=== PATIENT | male | born 1995 | race Caucasian/White ===

== ENCOUNTER 2016-06-21 12:21 | Observation (INO) | payer OTHER ==
[~2016-06-21] VITALS: Ht 185.4 cm; Wt 108.9 kg
--- NOTE | 2016-06-21 14:03 | DRSVH ---
PROCEDURE: CT ABDOMEN AND PELVIS WITH CONTRAST ([id number]) INDICATIONS: RIGHT SIDED ABDOMINAL PAIN TECHNIQUE: After the administration of oral and intravenous contrast, 5 mm thick sections acquired from the diap hragms to the symphysis. 5 mm thick coronal and sagittal reformats were performed. For radiation do se reduction, the following was used: automated exposure control, adjustment of mA and/or kV accordi ng to patient size. COMPARISON: None. FINDINGS: Image quality: Excellent. ABDOMEN: Lung bases: Lung bases are clear. Heart size is normal. Solid organs: Liver and spleen are normal in size and enhancement. Gallbladder is unremarkable. Bi liary system is non-dilated. Pancreas enhances normally. No adrenal nodules. Kidneys are normal in size and enhancement, without hydronephrosis. Peritoneum and bowel: Stomach, small bowel, and colon loops are normal in caliber and wall thickness . The appendix is hyperemic with focal periappendiceal fat stranding. The appendix measures 1.3 cm in diameter. No free fluid or air. No findings to suggest perforation or phlegmon. There are scattered sigmoid diverticula. No evidence for diverticulitis. Nodes and vessels: No retroperitoneal or mesenteric adenopathy. Aorta and inferior vena cava are no rmal in caliber. Miscellaneous: No ventral hernias. PELVIS: Genitourinary: Bladder wall thickness is normal. Miscellaneous: No inguinal hernias or adenopathy. Bones: No suspicious bony lesions. No vertebral body compression fractures. IMPRESSION: 1. Non-perforated acute appendicitis. This finding was discussed with Dr. Woodard at 2:00 PM on 06/21/16. 2. Diverticulosis. No acute diverticulitis. Dictated by: Ariella Haynes M.D. on 06/21/2016 at 14:02 Approved by: Ariella Haynes M.D. on 06/21/2016 at 14:02
[2016-06-21 16:43] VITALS: BP 120/68; PULSE 77; RESP 20; O2SAT 99
[2016-06-21] MEDS ORDERED: MetoCLOpramide 5 mg/mL 2 mL Inj IVPUSH PRN ×2 (17:15→20:50)
[2016-06-21] MEDS ORDERED: Ondansetron 2 mg/mL 2 mL Inj IVPUSH PRN ×2 (17:15→20:50)
[2016-06-21] MEDS: D5 0.45% NaCl + KCl 20 mEq/L 1,000 ML IV SCH (18:47)
[2016-06-21] MEDS: Cefotetan Inj 2,000 MG in IV Premix 1 EACH IV SCH (19:43)
--- NOTE | 2016-06-21 20:44 | HP ---
[address] [address] HISTORY AND PHYSICAL PATIENT: LEXY GREENE : 1995 MR#: [id number] ADMIT: 06/21/2016 JOB ID: [id number] CHIEF COMPLAINT: A 20-year-old gentleman with acute appendicitis seen in consultation at the request of Imani Woodard MD. HISTORY OF PRESENT ILLNESS: The patient is a 20-year-old gentleman who developed episodic abdominal pain starting three days ago. It progressively got worse, became more focal in the right lower side of the abdomen, with nausea and a couple episodes of emesis. He felt like he got sweats and chills last night, but he did not have any documented fevers. He was trying to see if he was going to get better, but he did not, prompting him to come into Urgent Care today. In Urgent Care he had blood tests and a CT scan done and was diagnosed with acute appendicitis and after Dr. Olivo discussed his case with me he was directly admitted to the hospital floor where I met him. OTHER MEDICAL PROBLEMS: Obesity. PRIOR OPERATIONS: None. HOME MEDICATIONS: None. ALLERGIES: No known drug allergies. REVIEW OF SYSTEMS: Twelve-point review of systems negative other than the pertinent positives noted in the history of present illness and other medical problems. SOCIAL HISTORY: He does not smoke. He is here with his mother. 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 FAMILY HISTORY: No family history of inflammatory bowel disease. Nobody in the family had appendicitis before that they know about. INVESTIGATIONS: Labs from June 21, 2016, showed WBC of 16.1, hemoglobin of 14.7, platelet count of 279, glucose of 100, creatinine of 0.75. Normal liver function studies. Albumin of 5.0. His urinalysis was negative other than some bilirubin. CT abdomen and pelvis performed on June 21, 2016, showed a 1.3 cm inflamed appendix with no evidence of perforation. PHYSICAL EXAMINATION: A 20-year-old gentleman in no acute distress. BMI 31.7. Temperature 36.8, pulse 77, blood pressure 120/68, saturating 99% on room air. Eyes: Normal pupils, conjunctivae. Ears, nose, and throat: Normal external appearance. Neck: No lymphadenopathy or jugular venous distention. Respiratory: Normal effort, clear to auscultation. Cardiovascular: Regular rate and rhythm. Gastrointestinal: Focally tender to palpation in the right lower quadrant. Neurologic: No gross deficits. Psych: Alert, appropriate. Musculoskeletal: Normal strength in extremities. ASSESSMENT AND PLAN: Acute appendicitis. We discussed the pathophysiology and treatment rationale and recommended IV antibiotics and laparoscopic appendectomy. They are comfortable waiting overnight. I will pass this information on to Dr. John Olivo, who is on-call this weekend, and we will plan to take care of him.
[2016-06-21 20:45] VITALS: BP 125/73; PULSE 83; RESP 20; O2SAT 98
[2016-06-21] MEDS ORDERED: Ondansetron 8 mg ODT Tablet PO PRN (20:50)
[2016-06-21] MEDS ORDERED: HYDROmorphone PCA 0.2 mg/mL 30 mL Inj - Standard IV PRN ×2 (20:50→21:00)
[2016-06-21] MEDS ORDERED: HYDROmorphone 1 mg/mL Inj IVPUSH PRN ×4 (20:50→21:00)
[2016-06-21 22:40] VITALS: RESP 15; O2SAT 95
[2016-06-22] VITALS (12 sets, daily range): BP systolic 104–132; BP diastolic 54–66; PULSE 60–111; RESP 14–20; O2SAT 96–100
[2016-06-22] MEDS: D5 0.45% NaCl + KCl 20 mEq/L 1,000 ML IV SCH (04:22)
[2016-06-22] MEDS: Cefotetan Inj 2,000 MG in IV Premix 1 EACH IV SCH (06:48)
[2016-06-22] MEDS ORDERED: Cefotetan Inj 2,000 MG in IV Premix 1 EACH IV ONE (08:00)
[2016-06-22] MEDS ORDERED: HYDROmorphone 1 mg/mL Inj IVPUSH PRN (09:10)
[2016-06-22] MEDS ORDERED: Lactated Ringer's 1,000 ML IV ONE ×2 (09:10→09:11)
[2016-06-22] MEDS ORDERED: Lactated Ringer's 1,000 ML IV SCH (09:10)
[2016-06-22] MEDS ORDERED: Lactated Ringer's 500 ML IV PRN (09:10)
[2016-06-22] MEDS ORDERED: Dexamethasone 4 mg/mL Inj IVPUSH PRN (09:10)
[2016-06-22] MEDS ORDERED: Ondansetron 2 mg/mL 2 mL Inj IVPUSH PRN ×2 (09:10→10:05)
[2016-06-22] MEDS ORDERED: fentaNYL-PF 50 mCg/mL 2 mL Inj IVPUSH PRN (09:10)
[2016-06-22] MEDS ORDERED: Phenylephrine 10,000 mCg/mL Inj IVPUSH PRN (09:10)
[2016-06-22] MEDS ORDERED: Labetalol 5 mg/mL 4 mL Inj IV PRN (09:10)
[2016-06-22] MEDS ORDERED: hydrALAZINE 20 mg/mL Inj IVPUSH PRN (09:10)
[2016-06-22] MEDS ORDERED: Atropine 0.4 mg/mL Inj IVPUSH PRN (09:10)
[2016-06-22] MEDS ORDERED: EPHEDrine Sulfate 50 mg/mL Inj IVPUSH PRN (09:10)
[2016-06-22] MEDS ORDERED: MetoCLOpramide 5 mg/mL 2 mL Inj IVPUSH PRN (09:10)
--- NOTE | 2016-06-22 09:10 | PCM.HPANE ---
Patient Data Date of Service: Jun 22, 2016 Surgeon Admitting Provider:John Olivo MD Attending Provider:John Olivo MD Primary Care Physician:Bri Alegre MD Other Provider:Roberta Cooley Anesthesia Reason for Visit Acute Appendicitis Ht/WT & BMI Height (Feet): 6 Height (Inches): 1.00 Weight (Kilograms): 108.900 Body Mass Index 31.88 Allergies Coded Allergies: No Known Allergies (Unverified Allergy, Unknown, 06/01/14) Diabetes History Hx Diabetes?: No Medications Hypertension Medication: No Home Meds Incl Beta Miguel Ángel: No No Active Prescriptions or Reported Meds History History of ENT Problems?: No Hx of Heart Problems?: No Cardiovascular History: Denies:: Congestive Heart Failure Hypertension Hx of Respiratory Problem?: No Respiratory History: Denies:: Tuberculosis Hx Neurologic Problems?: No Hx of GI Problems?: Yes Hx of Problems?: No Male Hx: Denies:: Prostate Problems Scrotal Mass Testicular Surgery Hx Musculoskeletal Problems?: No Hx of Psycho/Social Problems?: No Hx Surgeries?: No Hx Any Other Health Problems?: No History Blood Transfusions: Positive for:: Accept Blood Products? Denies:: Blood Transfuse Reaction Blood Transfusions Hx Diabetes: No Hx Alcohol Use: NoHx Substance Use: No Smoking Status: Former Smoker Stop/Bang Treated for Sleep Apnea?: No Do You Have a CPAP Machine?: No S-Snoring: Do You Snore Loudly: No T-Tired: feel tired, fatigued: Yes O-Obsered: Observed not breath: No P-Blood Pressure: treated: No B- Body Mass Index > 35 kg/m2: No A- Age over 50: No N- Neck Large Circumference: No G- Gender Male: Yes DAFNE Total Score: 2 DAFNE Risk Assessment: Low Risk, <3 Yes Risk Assessment Category Category 1A: Patient has history of documented sleep apnea, and HAS NOT received any narcotic, sedative or anesthesia administration during this stay. Category 1B: Patient has history of documented sleep apnea, and HAS received any narcotic , sedative or anesthesia administration during this stay Category 2: Patient has SUSPECTED Obstructive Sleep Apnea, and HAS received any narcotic , sedative or anesthesia administration during this stay. Category 3: Patient has SUSPECTED Obstructive Sleep Apnea and HAS NOT received narcotic, sedative or anesthesia administration during this stay. Category 4: Outpatient in Procedural Areas with known sleep apnea or who screen positive for High Risk via the STOP/BANG questionnaire. Exam Exam Vital Signs Vital Signs Date Time Temp Pulse Resp B/P Pulse Ox O2 Delivery O2 Flow Rate FiO2 06/22/16 06:05 36.6 79 20 104/61 97 Room Air 06/22/16 06:04 20 98 06/22/16 02:56 70 06/22/16 02:39 14 96 06/22/16 00:50 36.8 111 20 111/58 96 Room Air General Appearance: Alert, Oriented X3, Cooperative, No Acute Distress HEENT/AIRWAY: MP 2 Lungs: Normal Air Movement Heart: Exam Unremarkable Meds/Labs/Diagnostics Admission Meds Current Medications Potassium Chloride/Dextrose/ Sod Cl 1,000 ml @ 100 mls/hr Q10H IV Last administered on 06/22/16 04:22; Start 06/21/16 at 17:11 Cefotetan Disodium/Dextrose/ Premix (Cefotan Inj/IV Premix) 50 ml @ 100 mls/hr Q12H IV Last administered on 06/22/16 06:48; Start 06/21/16 at 18:00 Plan Impression Patient chart reviewed, patient interviewed and anesthestic plan with risks, benefits, and alternatives discussed, and informed consent obtained. ASA Physical Status: ASA1 Normal Healthy Anesthetic Plan: GA Bene/Risks/Altern/Consents: Yes HP Complete Prior to Induction: Yes Flavio Lara MD Jun 22, 2016 08:43
[2016-06-22] MEDS ORDERED: Bupivacaine-MPF 0.5% W/EPI 30 mL Inj INFILTRATE ONE (09:45)
[2016-06-22] MEDS ORDERED: Polyethylene Glycol (PEG) 17 Gm Powder PO ONE (10:05)
[2016-06-22] MEDS ORDERED: Acetaminophen IV 1,000 MG in IV Premix 1 EACH IV PRN (10:05)
[2016-06-22] MEDS ORDERED: diphenhydrAMINE 25 mg Capsule PO PRN (10:05)
--- NOTE | 2016-06-22 10:12 | PCM.ANEP1 ---
Post Anesthesia Phase 1 PACU Phase 1 Assessment Date of Service: Jun 22, 2016 Vital Signs Vital Signs Date Time Temp Pulse Resp B/P Pulse Ox O2 Delivery O2 Flow Rate FiO2 06/22/16 10:10 60 18 126/63 100 Simple Mask 13 06/22/16 10:07 36.4 128/63 06/22/16 06:05 36.6 79 20 104/61 97 Room Air 06/22/16 06:04 20 98 06/22/16 02:56 70 06/22/16 02:39 14 96 Anesthetic Administered: GA Level of Alertness: Drowsy, not talking Pain: No Pain Scale Score: 0 Nausea or Vomiting: No Airway Device: Oralpharangeal Airway Oxygen Delivery: Simple Mask Lungs: Normal Air Movement Flavio Lara MD Jun 22, 2016 10:11
--- NOTE | 2016-06-22 10:28 | OP ---
[address] [address] OPERATIVE REPORT PATIENT: LEXY GREENE : 1995 MR#: [id number] ADMIT: 06/21/2016 JOB ID: [id number] DATE OF SURGERY: 06/22/2016 SURGEON: John Olivo MD SKIAGRAPHER: Thuy Foote PA-C PREOPERATIVE DIAGNOSIS(ES): Appendicitis. POSTOPERATIVE DIAGNOSIS(ES): Appendicitis. PROCEDURE: Laparoscopic appendectomy. INDICATIONS: A 20-year-old man with signs and symptoms consistent with appendicitis. FINDINGS: Acute nonperforated appendicitis. DESCRIPTION OF PROCEDURE: The patient was brought to the operating room. SCOAP protocol was followed. A surgical time-out was performed. He received an additional dose of his perioperative antibiotics immediately prior to the incision. We obtained access with a Veress needle. Optical trocar was placed. Two additional ports were placed. There was minimal free fluid in the abdomen. The patient was placed head up, tilt to the left, and we attempted to identify the appendix as it came off the cecum. 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 Took down the mesoappendix partially with cautery followed by a single firing of the endoscopic stapler to get the rest of the mesoappendix and the appendix at its base. Specimen was removed in a bag without wound contamination. We checked the staple line and used cautery to stop the small amount of bleeding on the mesentery. The staple line was intact. We irrigated out appropriately, suctioned out all of our irrigation, and then removed our ports under laparoscopic vision. The 12 mm port was closed at the fascial level with 0-Vicryl and the skin was closed with subcuticular Monocryl. The patient tolerated the procedure well.
[2016-06-22] MEDS ORDERED: OXYC5TAB72 PO (11:01)
--- NOTE | 2016-06-22 11:02 | PCM.DISURG ---
Surgical Discharge Instruction Date of Service Jun 22, 2016 Dates of Hospitalization Date of Hospital Admission Jun 21, 2016 at 16:42 Providers Admitting Physician: John Olivo MD Primary Care Physician: Bri Alegre MD Attending Physician: John Olivo MD Discharge Diagnosis Discharge Diagnosis appendicitis Post Operative diagnosis laparoscopic appendectomy Diet Discharge Diet: No restrictions Activity Discharge Activity-General: No restrictions Dressing and Incisional Care Dressing Care: Allow Steri Stripes to fall off, Remove outer dressing after 24 hrs Hygiene: May shower Follow Up Plan Follow Up Plan 1-2 weeks with [facility] Call your provider for: Fever, Chills, Discharge @ incision, pus discharge John Olivo MD Jun 22, 2016 10:07
[2016-06-22] MEDS ORDERED: 0.9% Sodium Chloride 250 ML ONE (11:13)
--- NOTE | 2016-06-22 11:26 | PCM.ANEP2 ---
Post Anesthesia Evaluation ASA/CMS Post Anesthesia Date of Service: Jun 22, 2016 VS in Patient's Normal Range?: Yes Resp Stable; Airway Patent?: Yes CV Function & Hydration Stable: Yes Mental Status Recovered?: Yes Pain control Satisfactory?: Yes N/V Control Satisfactory?: Yes Flavio Lara MD Jun 22, 2016 11:26
[2016-06-22] MEDS ORDERED: Propofol 10,000 mCg/mL 20 mL Inj ONE (14:29)
[2016-06-22] MEDS ORDERED: Rocuronium 10 mg/mL 5 mL Inj ONE (14:29)
[2016-06-22] MEDS ORDERED: fentaNYL-PF 50 mCg/mL 2 mL Inj ONE (14:29)
[2016-06-22] MEDS ORDERED: Glycopyrrolate 0.2 mg/mL 5 mL Inj ONE (14:29)
[2016-06-22] MEDS ORDERED: Neostigmine 1 mg/mL 5 mL Inj ONE (14:29)
[2016-06-22] MEDS ORDERED: Ondansetron 2 mg/mL 2 mL Inj ONE (14:29)
[2016-06-22] MEDS ORDERED: Lidocaine PF 1% 30 mL Inj ONE (14:29)
[2016-06-22] MEDS ORDERED: Dexamethasone 4 mg/mL Inj ONE (14:29)
[2016-06-22] MEDS ORDERED: HYDROmorphone 2 mg/mL Inj ONE (14:29)
--- NOTE | 2016-06-22 15:32 | DIS ---
[address] [address] DISCHARGE SUMMARY PATIENT: LEXY GREENE : 1995 MR#: [id number] ADMIT: 06/21/2016 JOB ID: [id number] DIS: 06/22/2016 DISCHARGE DIAGNOSIS: Acute appendicitis. OPERATIONS AND PROCEDURES: Laparoscopic appendectomy. HOSPITAL COURSE: A 20-year-old man who presents with signs and symptoms consistent with appendicitis. He underwent a laparoscopic appendectomy on the morning of June 22 and will go home later in the afternoon on June 22, taking a soft diet. He will go home with 20 of oxycodone 5 mg p.o. q.4 hours p.r.n., and will transition [id number] Motrin as soon as possible. He will follow up with Dr. Martinez [facility] in the [facility] Department of [facility] in 1-2 weeks.
--- NOTE | 2016-06-24 10:35 | PCM.DC.SUR ---
Discharge Summary Date of Service: Date of Hospital Admission: Jun 21, 2016 at 16:42 Date of Operation(s): 06/21/2016 Date of Discharge: 06/22/2016 Diagnosis at Time of Discharge Primary diagnosis: Acute appendicitis Secondary diagnosis: Obesity BMI 31.7 Problems: Operation Laparoscopic appendectomy Brief History and Physical: The patient is a 20-year-old gentleman who developed episodic abdominal pain starting three days ago. It progressively got worse, became more focal in the right lower side of the abdomen, with nausea and a couple episodes of emesis. He felt like he got sweats and chills last night, but he did not have any documented fevers. He was trying to see if he was going to get better, but he did not, prompting him to come into Urgent Care today. In Urgent Care he had blood tests and a CT scan done and was diagnosed with acute appendicitis and after Dr. Olivo discussed his case with me he was directly admitted to the hospital floor where I met him. Consultants: General surgery: Dr. Angela Martinez [facility] Course: After undergoing the above procedure the patient was extubated in the operating room and taken to PACU. The patient was transferred to the floor for further care. On arrival the patient was alert and oriented X3. Able to make needs known. PRN pain medications received after back from OR after surgery with effective results. Reviewed discharge paperwork and discharge medication with the patient and understood, signed discharged paperwork at 1415, patient waiting for ride and will discharge once ride is here. IV to left arm discontinued with out difficulty. Pathology: Pending Disposition: home Follow-up Plan: General surgery clinic 1-2 weeks oxyCODONE (oxyCODONE) 5 Mg Tablet 5 MG PO Q4H PRN PRN For Moderate Pain copies to: Bri Alegre MD, Sherri L PA-C Jun 24, 2016 10:35
--- NOTE | 2016-06-25 14:49 | PATH ---
SURGICAL PATHOLOGY Attending Physician:John Olivo MD CASE STATUS: Signed Out PATIENT NAME: LEXY GREENE PID: [id number] : 1995 DATE COLLECTED:06/22/2016 00:00 SPECIMEN: Appendix CLINICAL HISTORY: APPENDIX FINAL DIAGNOSIS: Appendix: Acute appendicitis. ICD10 K35.80 GROSS DESCRIPTION: The specimen is received in one formalin filled container labeled with the patient's name, sublabeled "appendix" and consists of one cylindrical garsia appendix measuring 7.0 x 1.0 x 1.0 CM. The serosal surface is light son-garsia. There is a large amount of attached fatty tissue. Sectioning reveals the wall to be thickened 2 approximately 0.3 CM. In the central portion of the lumen is a small amount of light garsia mucoid friable material. Dry Heat Cabinet Attendant sections are submitted in one cassette. 06/24/2016 [facility] ICD-9 CODES: CPT CODES: 1: 27779 Electronically Signed Out Karlos Delaney MD [facility] [address], [place] [address] Technical component performed at [facility], [address] [place] [address] Ave[address], [place], [address]
== END 2016-06-22 14:30 | disposition home or self-care (01) ==
LOC: SCT 12:21 → UNDOADMIN 14:55 → OSC 14:55 → UNDOADMOB 15:06 → OSC 16:42
PROVIDERS: ADMIT Surgery; ATTEND Surgery
PROC: 0DTJ4ZZ Resection of Appendix, Percutaneous Endoscopic Approach (ICD-10-PCS; principal; 2016-06-22 09:00)
DX: K35.80 Unspecified acute appendicitis (principal); Z87.891 Personal history of nicotine dependence
CPT/HCPCS: 44970; 74177; G0378; G0379; J0131; J1100; J1170; J2250; J2270; J2405; J2710; J7050; J7120; Q9967